=== PATIENT | female | born 1955 | race American Indian/Alaskan Native ===

== ENCOUNTER 2017-07-01 10:45 | Emergency (ER) | payer BC ==
[2017-07-01] MEDS ORDERED: NACL 0.9% 1000 ML 1,000 ML IV ONE (10:58)
[2017-07-01] MEDS ORDERED: PEPCID IV ONE (10:59)
[2017-07-01 11:02] VITALS: BP 118/71
--- NOTE | 2017-07-01 11:07 | Emergency Department Report ---
Entered by YOAN RILEY, acting as scribe for LINDSAY SCHNEIDER NP. Stated Complaint: ALERGIC REACTION Time Seen by Provider: 07/01/17 10:58 - HPI History of Present Illness: Pt is a 61 y.o. female who presents to ED for evaluation of swelling to her left face and neck with generalized itching that started at approximately 1500 yesterday after eating david greens with turkey meat and spices made by coworker. She reports taking one Benadryl yesterday, but states that it made her feel worse. She does not report SOB or tongue swelling. - ROS Review of Systems: Positive for swelling to left face and neck Positive for generalized itching Negative for SOB or tongue swelling - Exam Physical Exam: Constitutional: Well-nourished, NAD. Pumonary: No airway compromise Neuro: A&Ox3 MSE screening note: Focused history and physical exam performed. Due to findings the following was ordered: Orders placed for: Meds and IV fluids ED Disposition for MSE Condition: Stable This documentation as recorded by the scribe,YOAN RILEY,accurately reflects the service I personally performed and the decisions made by ,LINDSAY SCHNEIDER NP.
--- NOTE | 2017-07-01 12:11 | Emergency Department Report ---
ED Allergic Reaction HPI - General Chief complaint: Allergic Reaction Stated complaint: ALERGIC REACTION Time Seen by Provider: 07/01/17 10:58 Source: patient Mode of arrival: Ambulatory Limitations: No Limitations - History of Present Illness Initial Comments: Pt is a 61 y.o. female who presents to ED for evaluation of swelling to her left face and neck with generalized itching that started at approximately 1500 yesterday after eating david greens with turkey meat and spices made by coworker. She reports taking one Benadryl yesterday, but states that it made her feel worse. She does not report SOB or tongue swelling. Patient denies any chest pain. Denies any wheezing. Also reported nasal congestion and coughing for one week. Patient with history of hyperlipidemia, hypertension, coronary artery disease with history of heart stent. Acid reflux. She denies any headache but reports facial pressure. Denies any sore throats . Niacin A difficulty swallowing MD Complaint: allergic reaction, facial swelling Onset/Timin -: days(s) (nasal congestion and cough for 1 week) Exposure: food Symptoms: itching, facial swelling. denies: lip swelling, difficulty swallowing , difficulty breathing, orolingual swelling, hoarseness, syncopy, dizziness, nausea, vomiting, abdominal pain Severity: moderate Treatment Prior to Arrival: benadryl Previous Allergy History: none - Related Data Previous Rx's Medication Instructions Recorded Last Taken Type AtorvaSTATin [Lipitor] 20 mg PO QHS #30 tablet 12/30/16 Unknown Rx Carvedilol [Coreg] 3.125 mg PO BID #60 tablet 12/30/16 Unknown Rx Clopidogrel [Plavix] 75 mg PO QDAY #30 tablet 12/30/16 Unknown Rx Lisinopril [Zestril TAB] 5 mg PO QDAY #30 tablet 12/30/16 Unknown Rx Pantoprazole [Protonix TAB] 20 mg PO QDAY #30 tablet. 12/30/16 Unknown Rx Amoxicillin/K Clav Tab [Augmentin 1 tab PO Q12HR #20 tab 07/01/17 Unknown Rx 875 mg] Cetirizine HCl [ZyrTEC] 10 mg PO QDAY #14 capsule 07/01/17 Unknown Rx Fluticasone [Flonase] 1 spray NS QDAY #1 bottle 07/01/17 Unknown Rx hydrOXYzine HCL [Atarax] 25 mg PO Q8H PRN #12 tablet 07/01/17 Unknown Rx methylPREDNISolone [Medrol] 4 mg PO QAM #1 tab.ds.pk 07/01/17 Unknown Rx Allergies Allergy/AdvReac Type Severity Reaction Status Date / Time aspirin Allergy Unknown Verified 10/31/13 12:35 Sulfa (Sulfonamide Allergy Unknown Verified 10/31/13 12:35 Antibiotics) ED Review of Systems ROS: Stated complaint: ALERGIC REACTION Other details as noted in HPI Comment: All other systems reviewed and negative Constitutional: denies: chills, fever Eyes: other (A she'll swelling especially around right eye). denies: eye pain, eye discharge, vision change ENT: congestion Respiratory: cough. denies: shortness of breath, SOB with exertion, SOB at rest , stridor, wheezing Cardiovascular: denies: chest pain, palpitations, edema, syncope Gastrointestinal: denies: abdominal pain, nausea, vomiting, diarrhea Musculoskeletal: denies: back pain, arthralgia Skin: pruritus. denies: rash Neurological: denies: headache, weakness, abnormal gait, vertigo ED Past Medical Hx - Past Medical History Previous Medical History?: Yes Hx Hypertension: Yes Additional medical history: high cholesterol - Surgical History Past Surgical History?: Yes Hx Coronary Stent: Yes (x1) Additional Surgical History: c section x 1 - Family History Family history: CAD/PR, hypertension - Social History Smoking Status: Former Smoker Substance Use Type: Prescribed Other Social History: Single - Medications Home Medications: Home Medications Medication Instructions Recorded Confirmed Last Taken Type AtorvaSTATin [Lipitor] 20 mg PO QHS #30 tablet 12/30/16 Unknown Rx Carvedilol [Coreg] 3.125 mg PO BID #60 tablet 12/30/16 Unknown Rx Clopidogrel [Plavix] 75 mg PO QDAY #30 tablet 12/30/16 Unknown Rx Lisinopril [Zestril TAB] 5 mg PO QDAY #30 tablet 12/30/16 Unknown Rx Pantoprazole [Protonix TAB] 20 mg PO QDAY #30 tablet.dr 12/30/16 Unknown Rx Amoxicillin/K Clav Tab [Augmentin 1 tab PO Q12HR #20 tab 07/01/17 Unknown Rx 875 mg] Cetirizine HCl [ZyrTEC] 10 mg PO QDAY #14 capsule 07/01/17 Unknown Rx Fluticasone [Flonase] 1 spray NS QDAY #1 bottle 07/01/17 Unknown Rx hydrOXYzine HCL [Atarax] 25 mg PO Q8H PRN #12 tablet 07/01/17 Unknown Rx methylPREDNISolone [Medrol] 4 mg PO QAM #1 tab.ds.pk 07/01/17 Unknown Rx ED Physical Exam - General Limitations: No Limitations General appearance: alert, in no apparent distress - Head Head exam: Present: atraumatic, normocephalic, normal inspection - Eye Eye exam: Present: normal appearance, PERRL, EOMI, periorbital swelling (Right) . Absent: conjunctival injection, nystagmus Pupils: Present: normal accommodation - ENT ENT exam: Present: normal exam, normal orophraynx, mucous membranes moist, other (facial swelling. Nasal mucosa congested and erythema with clear drainage and maxillary sinus tenderness to palpate). Absent: TM's normal bilaterally (Hiro Tm congestion without erythema), normal external ear exam - Neck Neck exam: Present: normal inspection. Absent: tenderness, meningismus, full ROM, lymphadenopathy - Expanded Neck Exam Expanded Neck exam: Present: other (mild anterior neck swelling). Absent: tenderness, midline deformity, anterior neck swelling, tracheal deviation - Respiratory Respiratory exam: Present: normal lung sounds bilaterally. Absent: respiratory distress, wheezes, rales, rhonchi, stridor, chest wall tenderness, accessory muscle use, decreased breath sounds, prolonged expiratory - Cardiovascular Cardiovascular Exam: Present: regular rate, normal rhythm, normal heart sounds - GI/Abdominal GI/Abdominal exam: Present: soft, normal bowel sounds. Absent: distended, tenderness, guarding, rebound, rigid - Extremities Exam Extremities exam: Present: normal inspection, full ROM, normal capillary refill. Absent: tenderness, pedal edema, joint swelling, calf tenderness - Back Exam Back exam: Present: normal inspection, full ROM. Absent: tenderness, CVA tenderness (R), CVA tenderness (L), muscle spasm, paraspinal tenderness, vertebral tenderness, rash noted - Neurological Exam Neurological exam: Present: alert, oriented X3, normal gait, reflexes normal. Absent: motor sensory deficit - Psychiatric Psychiatric exam: Present: normal affect, normal mood - Skin Skin exam: Present: warm, dry, intact, normal color. Absent: rash ED Course Vital Signs 07/01/17 10:56 Temperature 98 F Pulse Rate 84 Respiratory 20 Rate Blood Pressure 118/71 O2 Sat by Pulse 100 Oximetry - Reevaluation(s) Reevaluation #1: 07/01/17 12:32 Patient given IV fluids 1 L, Solu-Medrol 125 mg IV, Pepcid 20 mg IV and 1 L for IV fluid. Facial swelling has improved significantly. Since that she is feeling better. Swelling to anterior neck is also improved ED Medical Decision Making - Medical Decision Making ED course: He can present to the emergency room for facial swelling and and swelling around her right eye and anterior neck swelling after eating colored greens yesterday. She was not having any difficulty breathing, stridor, wheezing in or difficulty swallowing, swelling of tongue. She took Benadryl last night which made her very groggy and sleepy. SHe is also complaining of nasal congestion and coughing 1 week that's not related to the allergic reaction.Physical findings for patient with allergic reaction from food source which she received Solu-Medrol 125 mg IV and Pepcid 20 mg IV with 1 L for IV fluid and she has improved significantly. Patient was not given Benadryl and emergency room because she does not have someone to drive her home and her allergic reaction is minor. She is also with acute sinusitis and cough. I discussed the patient diagnosis and treatment plan and she voices understanding. She does have a primary care physician so I discussed with her that she needs to follow up with her primary care physician status post allergic reaction and acute sinusitis in 2 days. I also discussed with her if her symptoms of allergic reaction returns, swelling of the neck and phase, swelling of the tongue with difficulty breathing and to return to the emergency room [facility]. Patient discharged home with prescription for Medrol Dosepak, Flonase, Augmentin, Atarax and Zyrtec. Critical care attestation.: If time is entered above; I have spent that time in minutes in the direct care of this critically ill patient, excluding procedure time. ED Disposition Clinical Impression: Cough in adult Allergic reaction to food Qualifiers: Encounter type: initial encounter Qualified Code(s): T78.1XXA - Other adverse food reactions, not elsewhere classified, initial encounter Sinusitis, acute Qualifiers: Sinusitis location: maxillary Recurrence: recurrent Qualified Code(s): J01.01 - Acute recurrent maxillary sinusitis Disposition: DC-01 TO HOME OR SELFCARE Is pt being admited?: No Does the pt Need Aspirin: No Condition: Stable Instructions: Food Allergy (ED), Sinusitis (ED), Acute Cough (ED) Additional Instructions: Follow-up with her primary care physician in 2 days Take Medication as prescribed. Atarax is in benadryl family so sometimes they can make you drowsy so please do not take while driving or operating heavy machinery Use nasal saline to flush and nostrils without to relieve congestion If you develop, is focal to breathing, shortness of breath, increase in facial swelling and neck swelling, swelling of the tongue and difficulty swallowing please return to the emergency room [facility] Prescriptions: Amoxicillin/K Clav Tab [Augmentin 875 mg] 1 tab PO Q12HR #20 tab Cetirizine HCl [ZyrTEC] 10 mg PO QDAY #14 capsule Fluticasone [Flonase] 1 spray NS QDAY #1 bottle hydrOXYzine HCL [Atarax] 25 mg PO Q8H PRN #12 tablet PRN Reason: Itching methylPREDNISolone [Medrol] 4 mg PO QAM #1 tab.ds.pk Referrals: PRIMARY CARE, [Primary Care Provider] - 3-5 Days Forms: Work/School Release Form(ED)
== END 2017-07-01 12:56 | disposition home or self-care (01) ==
LOC: ED 10:45
DX: T78.1XXA Other adverse food reactions, not elsewhere classified, initial encounter (principal); J01.01 Acute recurrent maxillary sinusitis; R05 Cough; I10 Essential (primary) hypertension; Z87.891 Personal history of nicotine dependence; E78.00 Pure hypercholesterolemia, unspecified; Z79.82 Long term (current) use of aspirin; Z88.2 Allergy status to sulfonamides
CPT/HCPCS: 96361; 96374; 96375; 99282; J2930; J7030

== ENCOUNTER 2017-10-21 13:12 | Emergency (ER) | payer BC ==
[2017-10-21 13:45] VITALS: BP 176/85
--- NOTE | 2017-10-21 15:28 | Emergency Department Report ---
[facility] Chief Complaint: Eye Problems Stated Complaint: RIGHT EYE RED ITCHING Time Seen by Provider: 10/21/17 15:22 Duration: 2 Days Side: Bilateral Severity: moderate Symptoms: Yes Eye Itching, Yes Eye Redness, Yes Eye Pain (burning ), Yes Mucous Drainage (bilat ), Yes Purulent Drainage (bilat), No Blurred Vision, No Preceding URI, No H/O Allergic Rhinitis, No Contact Lens Use, No Trauma, No Fever, No Headache ED Review of Systems ROS: Stated complaint: RIGHT EYE RED ITCHING Other details as noted in HPI Constitutional: denies: chills, fever Eyes: eye pain, eye discharge. denies: vision change ENT: denies: ear pain, throat pain, dental pain, hearing loss, epistaxis, congestion Respiratory: denies: cough, shortness of breath, wheezing Cardiovascular: denies: chest pain, palpitations Endocrine: no symptoms reported Gastrointestinal: denies: abdominal pain, nausea, diarrhea Genitourinary: denies: urgency, dysuria, discharge Musculoskeletal: denies: back pain, joint swelling, arthralgia Skin: denies: rash, lesions Neurological: as per HPI Psychiatric: denies: anxiety, depression Hematological/Lymphatic: denies: easy bleeding, easy bruising ED Past Medical Hx - Past Medical History Previous Medical History?: Yes Hx Hypertension: Yes (stopped taking medications) Additional medical history: high cholesterol - Surgical History Past Surgical History?: Yes Hx Coronary Stent: Yes (x1) Additional Surgical History: c section x 1 - Social History Smoking Status: Former Smoker Substance Use Type: Alcohol - Medications Home Medications: Home Medications Medication Instructions Recorded Confirmed Last Taken Type AtorvaSTATin [Lipitor] 20 mg PO QHS #30 tablet 12/30/16 Unknown Rx Carvedilol [Coreg] 3.125 mg PO BID #60 tablet 12/30/16 Unknown Rx Clopidogrel [Plavix] 75 mg PO QDAY #30 tablet 12/30/16 Unknown Rx Lisinopril [Zestril TAB] 5 mg PO QDAY #30 tablet 12/30/16 Unknown Rx Pantoprazole [Protonix TAB] 20 mg PO QDAY #30 tablet 12/30/16 Unknown Rx Amoxicillin/K Clav Tab [Augmentin 1 tab PO Q12HR #20 tab 07/01/17 Unknown Rx 875 mg] Cetirizine HCl [ZyrTEC] 10 mg PO QDAY #14 capsule 07/01/17 Unknown Rx Fluticasone [Flonase] 1 spray NS QDAY #1 bottle 07/01/17 Unknown Rx hydrOXYzine HCL [Atarax] 25 mg PO Q8H PRN #12 tablet 07/01/17 Unknown Rx methylPREDNISolone [Medrol] 4 mg PO QAM #1 tab.ds.pk 07/01/17 Unknown Rx Acetaminophen 650 mg PO QID PRN #30 tablet 10/21/17 Unknown Rx Cetirizine HCl [Zyrtec] 10 mg PO DAILY #30 tablet 10/21/17 Unknown Rx Ofloxacin [Ocuflox 0.3%] 1 - 2 drop OU Q3HR 7 Days #1 bottle 10/21/17 Unknown Rx [facility] Exam - Exam General: Vital signs noted. No distress. Alert and acting appropriately. Eye Exam: Both Injection, Both EOMI, Both Mucous Discharge, Both Purulent Discharge, Neither Chemosis, Neither Abnormal Pupil, Neither Eye Foreign Body, Neither Lid Foreign Body, Neither Corneal Edema, Neither Photophobia HEENT: No Nasal Congestion, No Pharyngeal Erythema Remainder of HEENT: Normal Lungs: Yes Clear Lung Sounds, Yes Good Air Exchange, No Wheezes, No Stridor, No Cough, No Nasal Flaring, No Retractions, No Use of Accessory Muscles ED Course Vital Signs 10/21/17 13:42 Temperature 98.1 F Pulse Rate 62 Respiratory 20 Rate Blood Pressure 176/85 O2 Sat by Pulse 100 Oximetry ED Medical Decision Making - Medical Decision Making 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 Eye v/s PERRLA, EOMI, Conjunctivae erythema tearing visual acuity 20/40 bilat, bilat lids inverted, swept, irrigated with N/S this is a bilateral eye complaint likely conjunctivitis, will tx with polytrim, zyrtec, tylenol, pt will follow up with 1-2 days or return to emergency if symptoms not improving. pt verbalized agreement and understanding of discharge plan. Critical care attestation.: If time is entered above; I have spent that time in minutes in the direct care of this critically ill patient, excluding procedure time. ED Disposition Clinical Impression: Conjunctivitis Qualifiers: Conjunctivitis type: acute Acute conjunctivitis type: bacterial Laterality: bilateral Qualified Code(s): H10.33 - Unspecified acute conjunctivitis, bilateral Disposition: TO HOME OR SELFCARE Is pt being admited?: No Does the pt Need Aspirin: No Condition: Good Instructions: Conjunctivitis (ED) Additional Instructions: follow up with Ophthalmology in 1-2 days as instructed Prescriptions: Acetaminophen 650 mg PO QID PRN #30 tablet PRN Reason: Pain Cetirizine HCl [Zyrtec] 10 mg PO DAILY #30 tablet Ofloxacin [Ocuflox 0.3%] 1 - 2 drop OU Q3HR 7 Days #1 bottle Referrals: PRIMARY CAREMD [Primary Care Provider] - 3-5 Days ROLO STEWART MD [Staff Physician] - 3-5 Days Forms: Work/School Release Form(ED) Time of Disposition: 15:43
== END 2017-10-21 15:55 | disposition home or self-care (01) ==
LOC: ED 13:12
DX: H10.33 Unspecified acute conjunctivitis, bilateral (principal); I10 Essential (primary) hypertension
CPT/HCPCS: 99282

== ENCOUNTER 2017-12-10 08:37 | Emergency (ER) | payer SELFPAY ==
[2017-12-10 08:48] VITALS: BP 111/59
[2017-12-10 09:09] LABS: Basophils # (Auto) 0.1 K/mm3 (0.0-0.1); Basophils % (Auto) 1.2 % (0.0-1.8); Eosinophils % (Auto) 0.7 % (0.0-4.3); Hematocrit 40.5 % (30.3-42.9); Lymphocytes # (Auto) 1.5 K/mm3 (1.2-5.4); Lymphocytes % (Auto) 28.9 % (13.4-35.0); Mean Corpuscular HGB Conc 32 % (30-34); Mean Corpuscular Hemoglobin 27 pg (28-32); Mean Corpuscular Volume 83 fl (79-97); Monocytes # (Auto) 0.8 K/mm3 (0.0-0.8); Monocytes % (Auto) 15.5 % (0.0-7.3); Platelet Count 212 K/mm3 (140-440); Red Cell Distribution Width 14.9 % (13.2-15.2)
[2017-12-10 09:22] LABS: BUN/Creatinine Ratio 16; Blood Urea Nitrogen 13 mg/dL (7-17); Calcium 8.5 mg/dL (8.4-10.2); Hemolysis Index 7
[2017-12-10] MEDS ORDERED: K-DUR PO ONE (11:16)
[2017-12-10] MEDS ORDERED: TESSALON PERLES PO ONE (11:17)
--- NOTE | 2017-12-10 11:27 | Emergency Department Report ---
- General Chief Complaint: Upper Respiratory Infection Stated Complaint: WEAKNESS Time Seen by Provider: 12/10/17 11:15 Source: patient Mode of arrival: Ambulatory Limitations: No Limitations - History of Present Illness Initial Comments: this is a 62-year-old female nontoxic, well nourished in appearance, no acute signs of distress presents to the ED with c/o of productive cough, rhinorrhea, nasal congestion, body aches, weakness and bilateral leg cramps 6 days. Patient describes productive, yellow mucus production. Patient denies any sick contact. Patient denies any recent travels, long car rides or recent hospital stays. Denies hemoptysis, chest pain, short of breath, difficulty breathing, fever, chills, nausea, vomiting, abdominal pain, back pain, calf pain, calf tenderness. Patient denies any headache or stiff neck. Patient states allergies to aspirin and sulfa. Past medical history includes diet-controlled hypertension. MD Complaint: cough, rhinorrhea, nasal congestion -: days(s) (6) Severity: mild Consistency: constant Improves With: nothing Worsens With: nothing Associated Symptoms: rhinorrhea, nasal congestion, cough. denies: fever, chills , myalgias, diaphoresis, headache, sore throat, stiff neck, chest pain, shortness of breath, abdominal pain, nausea, vomiting, diarrhea, dysuria, rash, confusion, right sweats, weight loss, hoarseness, ear pain Treatments Prior to Arrival: none - Related Data Previous Rx's Medication Instructions Recorded Last Taken Type AtorvaSTATin [Lipitor] 20 mg PO QHS #30 tablet 12/30/16 Unknown Rx Carvedilol [Coreg] 3.125 mg PO BID #60 tablet 12/30/16 Unknown Rx Clopidogrel [Plavix] 75 mg PO QDAY #30 tablet 12/30/16 Unknown Rx Lisinopril [Zestril TAB] 5 mg PO QDAY #30 tablet 12/30/16 Unknown Rx Pantoprazole [Protonix TAB] 20 mg PO QDAY #30 tablet 12/30/16 Unknown Rx Amoxicillin/K Clav Tab [Augmentin 1 tab PO Q12HR #20 tab 07/01/17 Unknown Rx 875 mg] Cetirizine HCl [ZyrTEC] 10 mg PO QDAY #14 capsule 07/01/17 Unknown Rx Fluticasone [Flonase] 1 spray NS QDAY #1 bottle 07/01/17 Unknown Rx hydrOXYzine HCL [Atarax] 25 mg PO Q8H PRN #12 tablet 07/01/17 Unknown Rx methylPREDNISolone [Medrol] 4 mg PO QAM #1 tab.ds.pk 07/01/17 Unknown Rx Acetaminophen 650 mg PO QID PRN #30 tablet 10/21/17 Unknown Rx Cetirizine HCl [Zyrtec] 10 mg PO DAILY #30 tablet 10/21/17 Unknown Rx Ofloxacin [Ocuflox 0.3%] 1 - 2 drop OU Q3HR 7 Days #1 bottle 10/21/17 Unknown Rx Azithromycin [Zithromax Z-GALA] 250 mg PO DAILY #6 tablet 12/10/17 Unknown Rx Benzonatate [Tessalon Perle] 100 mg PO Q6H PRN #20 capsule 12/10/17 Unknown Rx Allergies Allergy/AdvReac Type Severity Reaction Status Date / Time aspirin Allergy Unknown Verified 10/31/13 12:35 Sulfa (Sulfonamide Allergy Unknown Verified 10/31/13 12:35 Antibiotics) ED Review of Systems ROS: Stated complaint: WEAKNESS Other details as noted in HPI Constitutional: denies: chills, fever Eyes: denies: eye pain, eye discharge, vision change ENT: denies: ear pain, throat pain Respiratory: cough. denies: shortness of breath, wheezing Cardiovascular: denies: chest pain, palpitations Endocrine: no symptoms reported Gastrointestinal: denies: abdominal pain, nausea, diarrhea Genitourinary: denies: urgency, dysuria, discharge Musculoskeletal: denies: back pain, joint swelling, arthralgia Skin: denies: rash, lesions Neurological: weakness. denies: headache, paresthesias Psychiatric: denies: anxiety, depression Hematological/Lymphatic: denies: easy bleeding, easy bruising ED Past Medical Hx - Past Medical History Previous Medical History?: Yes Hx Hypertension: Yes (stopped taking medications) Additional medical history: high cholesterol - Surgical History Past Surgical History?: Yes Hx Coronary Stent: Yes (x1) Additional Surgical History: c section x 1 - Social History Smoking Status: Former Smoker Substance Use Type: Prescribed - Medications Home Medications: Home Medications Medication Instructions Recorded Confirmed Last Taken Type AtorvaSTATin [Lipitor] 20 mg PO QHS #30 tablet 12/30/16 Unknown Rx Carvedilol [Coreg] 3.125 mg PO BID #60 tablet 12/30/16 Unknown Rx Clopidogrel [Plavix] 75 mg PO QDAY #30 tablet 12/30/16 Unknown Rx Lisinopril [Zestril TAB] 5 mg PO QDAY #30 tablet 12/30/16 Unknown Rx Pantoprazole [Protonix TAB] 20 mg PO QDAY #30 tablet. 12/30/16 Unknown Rx Amoxicillin/K Clav Tab [Augmentin 1 tab PO Q12HR #20 tab 07/01/17 Unknown Rx 875 mg] Cetirizine HCl [ZyrTEC] 10 mg PO QDAY #14 capsule 07/01/17 Unknown Rx Fluticasone [Flonase] 1 spray NS QDAY #1 bottle 07/01/17 Unknown Rx hydrOXYzine HCL [Atarax] 25 mg PO Q8H PRN #12 tablet 07/01/17 Unknown Rx methylPREDNISolone [Medrol] 4 mg PO QAM #1 tab.ds.pk 07/01/17 Unknown Rx Acetaminophen 650 mg PO QID PRN #30 tablet 10/21/17 Unknown Rx Cetirizine HCl [Zyrtec] 10 mg PO DAILY #30 tablet 10/21/17 Unknown Rx Ofloxacin [Ocuflox 0.3%] 1 - 2 drop OU Q3HR 7 Days #1 bottle 10/21/17 Unknown Rx Azithromycin [Zithromax Z-GALA] 250 mg PO DAILY #6 tablet 12/10/17 Unknown Rx Benzonatate [Tessalon Perle] 100 mg PO Q6H PRN #20 capsule 12/10/17 Unknown Rx ED Physical Exam - General Limitations: No Limitations General appearance: alert, in no apparent distress - Head Head exam: Present: atraumatic, normocephalic, normal inspection - Eye Eye exam: Present: normal appearance, PERRL, EOMI. Absent: scleral icterus, conjunctival injection, nystagmus, periorbital swelling, periorbital tenderness Pupils: Present: normal accommodation - ENT ENT exam: Present: normal exam, normal orophraynx, mucous membranes moist, TM's normal bilaterally, normal external ear exam - Neck Neck exam: Present: normal inspection, full ROM. Absent: tenderness, meningismus, lymphadenopathy, thyromegaly - Respiratory Respiratory exam: Present: normal lung sounds bilaterally. Absent: respiratory distress, wheezes, rales, rhonchi, stridor, chest wall tenderness, accessory muscle use, decreased breath sounds, prolonged expiratory - Cardiovascular Cardiovascular Exam: Present: regular rate, normal rhythm, normal heart sounds. Absent: bradycardia, tachycardia, irregular rhythm, systolic murmur, diastolic murmur, rubs, gallop - GI/Abdominal GI/Abdominal exam: Present: soft, normal bowel sounds. Absent: distended, tenderness, guarding, rebound, rigid, diminished bowel sounds - Rectal Rectal exam: Present: deferred - Extremities Exam Extremities exam: Present: normal inspection, full ROM, normal capillary refill. Absent: tenderness, pedal edema, joint swelling, calf tenderness - Back Exam Back exam: Present: normal inspection, full ROM. Absent: tenderness, CVA tenderness (R), CVA tenderness (L), muscle spasm, paraspinal tenderness, vertebral tenderness, rash noted - Neurological Exam Neurological exam: Present: alert, oriented X3, CN II-XII intact, normal gait, reflexes normal - Psychiatric Psychiatric exam: Present: normal affect, normal mood - Skin Skin exam: Present: warm, dry, intact, normal color. Absent: rash - Other Other exam information: Negative Holmans test. No calf pain or tenderness. ED Course Vital Signs 12/10/17 08:45 Temperature 98.7 F Pulse Rate 77 Respiratory 18 Rate Blood Pressure 111/59 O2 Sat by Pulse 100 Oximetry - Reevaluation(s) Reevaluation #1: 12/10/17 11:33 Patient is speaking in full sentences with no signs of distress noted. ED Medical Decision Making - Lab Data Result diagrams: 12/10/17 08:48 12/10/17 08:48 - Medical Decision Making This is a 62-year-old female presents with hypokalemia and upper respiratory infection. Patient stable and was examined by me. CBC and BPM obtain an shows a 3.3 low potassium. Patient received potassium chloride 20 MEQ by mouth. EKG obtained with no acute changes. Chest x-ray has been obtained and the radiologist with normal exam. Wells criteria 0 points. No signs or indications of PE or DVT upon examination and physical history. Patient be treated with empirically azithromycin due to symptoms worsening. Patient received Tessalon Perle and the patient's symptoms of cough improving and subsided. Patient was instructed Follow-up with a primary care doctor in 24 hours for abnormal potassium levels or if symptoms worsen and continue return to emergency room as soon as possible. At time time of discharge, the patient does not seem toxic or ill in appearance. No acute signs of distress noted. Patient agrees to discharge treatment plan of care. No further questions noted by the patient. Critical care attestation.: If time is entered above; I have spent that time in minutes in the direct care of this critically ill patient, excluding procedure time. ED Disposition Clinical Impression: Hypokalemia Upper respiratory infection Qualifiers: URI type: unspecified URI Qualified Code(s): J06.9 - Acute upper respiratory infection, unspecified Disposition: - TO HOME OR SELFCARE Is pt being admited?: No Does the pt Need Aspirin: No Condition: Stable Instructions: Benzonatate (By mouth), Azithromycin (By mouth), Hypokalemia (ED) , Upper Respiratory Infection (ED) Additional Instructions: Follow-up with a primary care doctor/inspection clerk in 24 hours for abnormal potassium levels or if symptoms worsen and continue return to emergency room as soon as possible. Prescriptions: Azithromycin [Zithromax Z-GALA] 250 mg PO DAILY #6 tablet Benzonatate [Tessalon Perle] 100 mg PO Q6H PRN #20 capsule PRN Reason: Sore Throat Referrals: PRIMARY MD JOHN [Referring] - 3-5 Days [facility] [place] [Outside] - 3-5 Days [facility] [place] [Outside] - 3-5 Days OCTAVIA HINOJOSA MD [Primary Care Provider] - 24 Hours SINCERE CRUMP MD [Staff Physician] - 24 Hours Forms: Work/School Release Form(ED)
--- NOTE | 2017-12-10 12:09 | XRay Report ---
ROUTINE CHEST, TWO VIEWS: HISTORY: Cough. The trachea, heart, mediastinal contour, lung rebolledo and bony thorax are unremarkable. IMPRESSION: Unremarkable chest x-ray. No significant change since 10/20/16.
== END 2017-12-10 12:35 | disposition home or self-care (01) ==
LOC: ED 08:37
DX: J06.9 Acute upper respiratory infection, unspecified (principal); E87.6 Hypokalemia; I10 Essential (primary) hypertension; Z87.891 Personal history of nicotine dependence; Z95.1 Presence of aortocoronary bypass graft; Z88.6 Allergy status to analgesic agent; Z88.2 Allergy status to sulfonamides
CPT/HCPCS: 36415; 71046; 80048; 85025; 87400; 93005; 93010; 99284

== ENCOUNTER 2018-03-17 16:47 | Emergency (ER) | payer SELFPAY ==
[2018-03-17 16:56] VITALS: BP 139/78
--- NOTE | 2018-03-17 20:11 | Emergency Department Report ---
ED ENT HPI - General Chief complaint: Dental/Oral Stated complaint: TOOTHACHE Time Seen by Provider: 03/17/18 20:11 Source: patient Mode of arrival: Ambulatory Limitations: No Limitations - History of Present Illness Initial comments: This is a 62-year-old female nontoxic, well nourished in appearance, no acute signs of distress presents to the ED with c/o of acute on chronic left lower toothache 1 day. Patient stated she went to a dentist and stated that she was never given any medication for pain or antibiotics. 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 Patient stated that pain radiates from his job to his left side of head. Patient otherwise denies any head trauma. Patient describes toothache as aching level of 8 out of 10. Patient denies any facial swelling. Patient denies any numbness, tingling, fever, chills, headache, stiff neck, abdominal pain, chest pain, shortness of breath. Patient states allergies to aspirin and sulfa. MD complaint: tooth pain -: days(s) (1) Location: tooth # (20) 1 - pain Severity: mild Severity scale (0 -10): 8 Quality: aching Consistency: constant Improves with: none Worsens with: none Context- Dental: history of dental caries, poor dental care Associated Symptoms: gum swelling, toothache. denies: fever, cough, pain with swallowing, sore throat, tinnitus, hearing loss, discharge from ear - Related Data Previous Rx's Medication Instructions Recorded Last Taken Type AtorvaSTATin [Lipitor] 20 mg PO QHS #30 tablet 12/30/16 Unknown Rx Carvedilol [Coreg] 3.125 mg PO BID #60 tablet 12/30/16 Unknown Rx Clopidogrel [Plavix] 75 mg PO QDAY #30 tablet 12/30/16 Unknown Rx Lisinopril [Zestril TAB] 5 mg PO QDAY #30 tablet 12/30/16 Unknown Rx Pantoprazole [Protonix TAB] 20 mg PO QDAY #30 12/30/16 Unknown Rx Amoxicillin/K Clav Tab [Augmentin 1 tab PO Q12HR #20 tab 07/01/17 Unknown Rx 875 mg] Cetirizine HCl [ZyrTEC] 10 mg PO QDAY #14 capsule 07/01/17 Unknown Rx Fluticasone [Flonase] 1 spray NS QDAY #1 bottle 07/01/17 Unknown Rx hydrOXYzine HCL [Atarax] 25 mg PO Q8H PRN #12 tablet 07/01/17 Unknown Rx methylPREDNISolone [Medrol] 4 mg PO QAM #1 tab.ds.pk 07/01/17 Unknown Rx Acetaminophen 650 mg PO QID PRN #30 tablet 10/21/17 Unknown Rx Cetirizine HCl [Zyrtec] 10 mg PO DAILY #30 tablet 10/21/17 Unknown Rx Ofloxacin [Ocuflox 0.3%] 1 - 2 drop OU Q3HR 7 Days #1 bottle 10/21/17 Unknown Rx Azithromycin [Zithromax Z-GALA] 250 mg PO DAILY #6 tablet 12/10/17 Unknown Rx Benzonatate [Tessalon Perle] 100 mg PO Q6H PRN #20 capsule 12/10/17 Unknown Rx Acetaminophen/Codeine [Tylenol 1 tab PO Q6H PRN #12 tab 03/17/18 Unknown Rx /Codeine # 3 tab] Amoxicillin/K Clav Tab [Augmentin 1 tab PO Q12HR #20 tab 03/17/18 Unknown Rx 875 mg] Chlorhexidine Mouthwash [Peridex] 15 ml MM BID #1 bottle 03/17/18 Unknown Rx Allergies Allergy/AdvReac Type Severity Reaction Status Date / Time aspirin Allergy Unknown Verified 03/17/18 16:52 Sulfa (Sulfonamide Allergy Unknown Verified 03/17/18 16:52 Antibiotics) ED Dental HPI - General Chief complaint: Dental/Oral Stated complaint: TOOTHACHE Time Seen by Provider: 03/17/18 20:11 Source: patient Mode of arrival: Ambulatory Limitations: No Limitations - Related Data Previous Rx's Medication Instructions Recorded Last Taken Type AtorvaSTATin [Lipitor] 20 mg PO QHS #30 tablet 12/30/16 Unknown Rx Carvedilol [Coreg] 3.125 mg PO BID #60 tablet 12/30/16 Unknown Rx Clopidogrel [Plavix] 75 mg PO QDAY #30 tablet 12/30/16 Unknown Rx Lisinopril [Zestril TAB] 5 mg PO QDAY #30 tablet 12/30/16 Unknown Rx Pantoprazole [Protonix TAB] 20 mg PO QDAY #30 tablet. 12/30/16 Unknown Rx Amoxicillin/K Clav Tab [Augmentin 1 tab PO Q12HR #20 tab 07/01/17 Unknown Rx 875 mg] Cetirizine HCl [ZyrTEC] 10 mg PO QDAY #14 capsule 07/01/17 Unknown Rx Fluticasone [Flonase] 1 spray NS QDAY #1 bottle 07/01/17 Unknown Rx hydrOXYzine HCL [Atarax] 25 mg PO Q8H PRN #12 tablet 07/01/17 Unknown Rx methylPREDNISolone [Medrol] 4 mg PO QAM #1 tab.ds.pk 07/01/17 Unknown Rx Acetaminophen 650 mg PO QID PRN #30 tablet 10/21/17 Unknown Rx Cetirizine HCl [Zyrtec] 10 mg PO DAILY #30 tablet 10/21/17 Unknown Rx Ofloxacin [Ocuflox 0.3%] 1 - 2 drop OU Q3HR 7 Days #1 bottle 10/21/17 Unknown Rx Azithromycin [Zithromax Z-GALA] 250 mg PO DAILY #6 tablet 12/10/17 Unknown Rx Benzonatate [Tessalon Perle] 100 mg PO Q6H PRN #20 capsule 12/10/17 Unknown Rx Acetaminophen/Codeine [Tylenol 1 tab PO Q6H PRN #12 tab 03/17/18 Unknown Rx /Codeine # 3 tab] Amoxicillin/K Clav Tab [Augmentin 1 tab PO Q12HR #20 tab 03/17/18 Unknown Rx 875 mg] Chlorhexidine Mouthwash [Peridex] 15 ml MM BID #1 bottle 03/17/18 Unknown Rx Allergies Allergy/AdvReac Type Severity Reaction Status Date / Time aspirin Allergy Unknown Verified 03/17/18 16:52 Sulfa (Sulfonamide Allergy Unknown Verified 03/17/18 16:52 Antibiotics) ED Review of Systems ROS: Stated complaint: TOOTHACHE Other details as noted in HPI Constitutional: denies: chills, fever Eyes: denies: eye pain, eye discharge, vision change ENT: dental pain. denies: ear pain, throat pain Respiratory: denies: cough, shortness of breath, wheezing Cardiovascular: denies: chest pain, palpitations Endocrine: no symptoms reported Gastrointestinal: denies: abdominal pain, nausea, diarrhea Genitourinary: denies: urgency, dysuria, discharge Musculoskeletal: denies: back pain, joint swelling, arthralgia Skin: denies: rash, lesions Neurological: denies: headache, weakness, paresthesias Psychiatric: denies: anxiety, depression Hematological/Lymphatic: denies: easy bleeding, easy bruising ED Past Medical Hx - Past Medical History Hx Hypertension: Yes (stopped taking medications) Additional medical history: high cholesterol - Surgical History Hx Coronary Stent: Yes (x1) Additional Surgical History: c section x 1 - Social History Smoking Status: Former Smoker Substance Use Type: Prescribed - Medications Home Medications: Home Medications Medication Instructions Recorded Confirmed Last Taken Type AtorvaSTATin [Lipitor] 20 mg PO QHS #30 tablet 12/30/16 Unknown Rx Carvedilol [Coreg] 3.125 mg PO BID #60 tablet 12/30/16 Unknown Rx Clopidogrel [Plavix] 75 mg PO QDAY #30 tablet 12/30/16 Unknown Rx Lisinopril [Zestril TAB] 5 mg PO QDAY #30 tablet 12/30/16 Unknown Rx Pantoprazole [Protonix TAB] 20 mg PO QDAY #30 tablet.dr 12/30/16 Unknown Rx Amoxicillin/K Clav Tab [Augmentin 1 tab PO Q12HR #20 tab 07/01/17 Unknown Rx 875 mg] Cetirizine HCl [ZyrTEC] 10 mg PO QDAY #14 capsule 07/01/17 Unknown Rx Fluticasone [Flonase] 1 spray NS QDAY #1 bottle 07/01/17 Unknown Rx hydrOXYzine HCL [Atarax] 25 mg PO Q8H PRN #12 tablet 07/01/17 Unknown Rx methylPREDNISolone [Medrol] 4 mg PO QAM #1 tab.ds.pk 07/01/17 Unknown Rx Acetaminophen 650 mg PO QID PRN #30 tablet 10/21/17 Unknown Rx Cetirizine HCl [Zyrtec] 10 mg PO DAILY #30 tablet 10/21/17 Unknown Rx Ofloxacin [Ocuflox 0.3%] 1 - 2 drop OU Q3HR 7 Days #1 bottle 10/21/17 Unknown Rx Azithromycin [Zithromax Z-GALA] 250 mg PO DAILY #6 tablet 12/10/17 Unknown Rx Benzonatate [Tessalon Perle] 100 mg PO Q6H PRN #20 capsule 12/10/17 Unknown Rx Acetaminophen/Codeine [Tylenol 1 tab PO Q6H PRN #12 tab 03/17/18 Unknown Rx /Codeine # 3 tab] Amoxicillin/K Clav Tab [Augmentin 1 tab PO Q12HR #20 tab 03/17/18 Unknown Rx 875 mg] Chlorhexidine Mouthwash [Peridex] 15 ml MM BID #1 bottle 03/17/18 Unknown Rx ED Physical Exam - General Limitations: No Limitations General appearance: alert, in no apparent distress - Head Head exam: Present: atraumatic, normocephalic - Eye Eye exam: Present: normal appearance Pupils: Present: normal accommodation - ENT ENT exam: Present: mucous membranes moist, TM's normal bilaterally, normal external ear exam - Expanded ENT Exam Expanded Ear exam: Present: normal external inspection Mouth exam: Present: normal external inspection, tongue normal. Absent: drooling, trismus, muffled voice, tongue elevation, laceration Teeth exam: Present: dental caries, fractured tooth # (20), dental tenderness # (20), gingival enlargement, other (No facial swelling. ) 1 - Fractured, Dental Tenderness Throat exam: Positive: normal inspection, other (Uvula midline. No abscess or swelling noted. ). Negative: tonsillar erythema, tonsillomegaly, tonsillar exudate, R peritonsillar mass, L peritonsillar mass - Neck Neck exam: Present: normal inspection, full ROM. Absent: tenderness, meningismus - Respiratory Respiratory exam: Present: normal lung sounds bilaterally. Absent: respiratory distress, wheezes, rales, rhonchi, stridor - Cardiovascular Cardiovascular Exam: Present: regular rate, normal rhythm, normal heart sounds. Absent: irregular rhythm, systolic murmur, diastolic murmur, rubs, gallop - GI/Abdominal GI/Abdominal exam: Present: soft, normal bowel sounds - Rectal Rectal exam: Present: deferred - Extremities Exam Extremities exam: Present: normal inspection, full ROM, normal capillary refill - Back Exam Back exam: Present: normal inspection, full ROM - Neurological Exam Neurological exam: Present: alert, oriented X3, normal gait - Psychiatric Psychiatric exam: Present: normal affect, normal mood - Skin Skin exam: Present: warm, dry, intact, normal color. Absent: rash ED Course Vital Signs 03/17/18 16:52 Temperature 97.8 F Pulse Rate 85 Respiratory 18 Rate Blood Pressure 139/78 O2 Sat by Pulse 98 Oximetry - Reevaluation(s) Reevaluation #1: 03/17/18 20:39 Patient is speaking in full sentences with no signs of distress noted. Critical care attestation.: If time is entered above; I have spent that time in minutes in the direct care of this critically ill patient, excluding procedure time. ED Disposition Clinical Impression: Dental caries, Gingivitis Disposition: - TO HOME OR SELFCARE Is pt being admited?: No Does the pt Need Aspirin: No Condition: Stable Instructions: Dental Caries (ED), Gingivitis (ED), Acetaminophen/Codeine (By mouth), Amoxicillin/Clavulanate Potassium (By mouth) Additional Instructions: Follow-up with a dentist in 3-5 days or if symptoms worsen and continue return to emergency room as soon as possible. Prescriptions: Acetaminophen/Codeine [Tylenol /Codeine # 3 tab] 1 tab PO Q6H PRN #12 tab PRN Reason: Pain Amoxicillin/K Clav Tab [Augmentin 875 mg] 1 tab PO Q12HR #20 tab Chlorhexidine Mouthwash [Peridex] 15 ml MM BID #1 bottle Referrals: PRIMARY CAREMD [Referring] - 3-5 Days MICHAEL GARCIA MD [Staff Physician] - 3-5 Days [facility] [Outside] - 3-5 Days
[2018-03-17] MEDS ORDERED: TYLENOL PO ONE (20:15)
== END 2018-03-17 20:45 | disposition home or self-care (01) ==
LOC: ED 16:47
DX: K02.9 Dental caries, unspecified (principal); K05.10 Chronic gingivitis, plaque induced; Z87.891 Personal history of nicotine dependence; Z88.1 Allergy status to other antibiotic agents; Z88.8 Allergy status to other drugs, medicaments and biological substances
CPT/HCPCS: 99282

== ENCOUNTER 2020-01-13 08:44 | Emergency (ER) | payer BC ==
[2020-01-13 08:55] VITALS: BP 153/69
== END 2020-01-13 10:17 | disposition left against medical advice (07) ==
LOC: ED 08:44
DX: S01.112A Laceration without foreign body of left eyelid and periocular area, initial encounter (principal); Z53.21 Procedure and treatment not carried out due to patient leaving prior to being seen by health care provider; X58.XXXA Exposure to other specified factors, initial encounter; Y93.89 Activity, other specified; Y92.89 Other specified places as the place of occurrence of the external cause; Y99.8 Other external cause status

== ENCOUNTER 2020-02-16 14:51 | Emergency (ER) | payer BC ==
--- NOTE | 2020-02-16 16:46 | Event Note ---
ED Screening Note Date of service: 02/16/20 Time: 16:42 ED Screening Note: 64 y o female presents with headache, fever and body aches x today No recent travels No sick contacts This initial assessment/diagnostic orders/clinical plan/treatment(s) is/are subject to change based on patients health status, clinical progression and re- assessment by fellow clinical providers in the ED. Further treatment and workup at subsequent clinical providers discretion. Patient/guardian urged not to elope from the ED as their condition may be serious if not clinically assessed and managed. Initial orders include: cxr acc eval
--- NOTE | 2020-02-16 18:33 | XRay Report ---
CHEST PA AND LATERAL VIEWS INDICATION: cough. COMPARISON: 12/10/2017 FINDINGS: Support devices: None. Heart: Within normal limits. Lungs/Pleura: No consolidation or effusion. No pneumothorax. IMPRESSION: 1. No acute findings. Signer Name: Ashish Williamson MD Signed: 02/16/2020 6:29 PM Workstation Name: [id number]
[2020-02-16 19:18] VITALS: BP 180/76
[2020-02-16] MEDS ORDERED: predniSONE 20 MG TAB PO ONE (20:14)
[2020-02-16] MEDS ORDERED: ACETAMINOPHEN 500 MG TAB PO ONE (20:14)
[2020-02-16] MEDS ORDERED: METOCLOPRAMIDE 10 MG TAB PO ONE (20:14)
[2020-02-16] MEDS ORDERED: diphenhydrAMINE 25 MG CAP PO ONE (20:14)
--- NOTE | 2020-02-16 20:42 | Emergency Department Report ---
ED Headache HPI - General Chief Complaint: Headache Stated Complaint: FEVER/ACHING/HEADACHE Time Seen by Provider: 02/16/20 19:43 - History of Present Illness Initial Comments: 64 y/o female presents with headache, fever and body aches x today, No recent travels, No sick contacts,. There is no fever noted in triage today. There is no cough, there is been no nausea vomiting no shortness of breath , or chest pain. Symptoms are exacerbated by activity. Symptoms are relieved by nothing tried. Patient primary complaint at this time is 4/10 headache right frontal. Patient has had similar headache in the past and same location and intensity. She denies photophobia, there is no dizziness, lightheadedness, or nausea vomiting at this time. Patient is tolerating p.o. intake, gait remains steady and at baseline per patient. Timing/Duration: 24 hours Quality: moderate Head Injury Location: frontal Recent Head Trauma: no recent headache/trauma, occasional headaches Modifying Factors: improves with: movement Associated Symptoms: fever/chills, nasal congestion, nasal drainage. denies: nausea/vomiting, numbness in legs/feet, rash, sinus infection, stiff neck, vision changes, weakness Allergies/Adverse Reactions: Allergies aspirin Allergy (Verified 03/17/18 16:52) Unknown Sulfa (Sulfonamide Antibiotics) Allergy (Verified 03/17/18 16:52) Unknown Home Medications: Ambulatory Orders AtorvaSTATin [Lipitor] 20 mg PO QHS #30 tablet 12/30/16 Clopidogrel [Plavix] 75 mg PO QDAY #30 tablet 12/30/16 Pantoprazole [Protonix TAB] 20 mg PO QDAY #30 tablet. 12/30/16 carvediloL [Coreg] 3.125 mg PO BID #60 tablet 12/30/16 lisinopriL [Zestril TAB] 5 mg PO QDAY #30 tablet 12/30/16 Amoxicillin/K Clav Tab [Augmentin 875 mg] 1 tab PO Q12HR #20 tab 07/01/17 Cetirizine HCl [ZyrTEC] 10 mg PO QDAY #14 capsule 07/01/17 Fluticasone [Flonase] 1 spray NS QDAY #1 bottle 07/01/17 hydrOXYzine HCL [Atarax] 25 mg PO Q8H PRN #12 tablet 07/01/17 methylPREDNISolone [Medrol] 4 mg PO QAM #1 tab.ds.pk 07/01/17 Acetaminophen 650 mg PO QID PRN #30 tablet 10/21/17 Cetirizine HCl [Zyrtec] 10 mg PO DAILY #30 tablet 10/21/17 Ofloxacin [Ocuflox 0.3%] 1 - 2 drop OU Q3HR 7 Days #1 bottle 10/21/17 Azithromycin [Zithromax Z-GALA] 250 mg PO DAILY #6 tablet 12/10/17 Benzonatate [Tessalon Perle] 100 mg PO Q6H PRN #20 capsule 12/10/17 Acetaminophen/Codeine [Tylenol /Codeine # 3 tab] 1 tab PO Q6H PRN #12 tab 03/17/18 Amoxicillin/K Clav Tab [Augmentin 875 mg] 1 tab PO Q12HR #20 tab 03/17/18 Chlorhexidine Mouthwash [Peridex] 15 ml MM BID #1 bottle 03/17/18 Ciprofloxacin HCl [Cipro] 500 mg PO BID #14 tablet 11/09/18 Ondansetron [Zofran Odt] 4 mg PO Q8HR PRN #10 tab.rapdis 11/09/18 Tamsulosin HCl [Flomax] 0.4 mg PO DAILY #3 cap.er.24h 11/09/18 oxyCODONE /ACETAMINOPHEN [Percocet 5/325] 1 tab PO Q6HR PRN #12 tablet 11/09/18 Acetaminophen [Non-Aspirin Extra Strength] 1,000 mg PO QID PRN #30 tablet 02/16/20 Metoclopramide [Reglan] 10 mg PO Q8H PRN #30 tab 02/16/20 diphenhydrAMINE [Benadryl CAP] 25 mg PO Q6HR PRN #30 capsule 02/16/20 ED Review of Systems ROS: Stated complaint: FEVER/ACHING/HEADACHE Other details as noted in HPI Constitutional: denies: chills, fever Eyes: denies: eye pain, eye discharge, vision change ENT: denies: ear pain, throat pain, dental pain, epistaxis, congestion Respiratory: denies: cough, shortness of breath, wheezing Cardiovascular: denies: chest pain, palpitations Endocrine: no symptoms reported Gastrointestinal: denies: abdominal pain, nausea, vomiting, diarrhea Genitourinary: denies: urgency, dysuria, discharge Musculoskeletal: denies: back pain, joint swelling, arthralgia Skin: denies: rash, lesions Neurological: headache. denies: weakness, paresthesias, vertigo Psychiatric: denies: anxiety, depression Hematological/Lymphatic: denies: easy bleeding, easy bruising ED Past Medical Hx - Past Medical History Previous Medical History?: Yes Hx Hypertension: Yes (stopped taking medications) Hx Arthritis: Yes Additional medical history: high cholesterol - Surgical History Past Surgical History?: Yes Hx Coronary Stent: Yes (x1) Additional Surgical History: c section x 1 - Social History Smoking Status: Never Smoker Substance Use Type: None - Medications Home Medications: Home Medications Medication Instructions Recorded Confirmed Last Taken Type AtorvaSTATin [Lipitor] 20 mg PO QHS #30 tablet 12/30/16 Unknown Rx Clopidogrel [Plavix] 75 mg PO QDAY #30 tablet 12/30/16 Unknown Rx Pantoprazole [Protonix TAB] 20 mg PO QDAY #30 tablet.dr 12/30/16 Unknown Rx carvediloL [Coreg] 3.125 mg PO BID #60 tablet 12/30/16 Unknown Rx lisinopriL [Zestril TAB] 5 mg PO QDAY #30 tablet 12/30/16 Unknown Rx Amoxicillin/K Clav Tab [Augmentin 1 tab PO Q12HR #20 tab 07/01/17 Unknown Rx 875 mg] Cetirizine HCl [ZyrTEC] 10 mg PO QDAY #14 capsule 07/01/17 Unknown Rx Fluticasone [Flonase] 1 spray NS QDAY #1 bottle 07/01/17 Unknown Rx hydrOXYzine HCL [Atarax] 25 mg PO Q8H PRN #12 tablet 07/01/17 Unknown Rx methylPREDNISolone [Medrol] 4 mg PO QAM #1 tab.ds.pk 07/01/17 Unknown Rx Acetaminophen 650 mg PO QID PRN #30 tablet 10/21/17 Unknown Rx Cetirizine HCl [Zyrtec] 10 mg PO DAILY #30 tablet 10/21/17 Unknown Rx Ofloxacin [Ocuflox 0.3%] 1 - 2 drop OU Q3HR 7 Days #1 bottle 10/21/17 Unknown Rx Azithromycin [Zithromax Z-GALA] 250 mg PO DAILY #6 tablet 12/10/17 Unknown Rx Benzonatate [Tessalon Perle] 100 mg PO Q6H PRN #20 capsule 12/10/17 Unknown Rx Acetaminophen/Codeine [Tylenol 1 tab PO Q6H PRN #12 tab 03/17/18 Unknown Rx /Codeine # 3 tab] Amoxicillin/K Clav Tab [Augmentin 1 tab PO Q12HR #20 tab 03/17/18 Unknown Rx 875 mg] Chlorhexidine Mouthwash [Peridex] 15 ml MM BID #1 bottle 03/17/18 Unknown Rx Ciprofloxacin HCl [Cipro] 500 mg PO BID #14 tablet 11/09/18 Unknown Rx Ondansetron [Zofran Odt] 4 mg PO Q8HR PRN #10 tab.rapdis 11/09/18 Unknown Rx Tamsulosin HCl [Flomax] 0.4 mg PO DAILY #3 cap.er.24h 11/09/18 Unknown Rx oxyCODONE /ACETAMINOPHEN [Percocet 1 tab PO Q6HR PRN #12 tablet 11/09/18 Unknown Rx 5/325] Acetaminophen [Non-Aspirin Extra 1,000 mg PO QID PRN #30 tablet 02/16/20 Unknown Rx Strength] Metoclopramide [Reglan] 10 mg PO Q8H PRN #30 tab 02/16/20 Unknown Rx diphenhydrAMINE [Benadryl CAP] 25 mg PO Q6HR PRN #30 capsule 02/16/20 Unknown Rx ED Physical Exam - General Limitations: No Limitations General appearance: alert, in no apparent distress - Head Head exam: Present: atraumatic, normocephalic, normal inspection - Eye Eye exam: Present: normal appearance, PERRL, EOMI. Absent: conjunctival injection, nystagmus Pupils: Present: normal accommodation - ENT ENT exam: Present: normal orophraynx, mucous membranes moist, TM's normal bilaterally, normal external ear exam - Neck Neck exam: Present: normal inspection, full ROM. Absent: tenderness, lymphadenopathy, thyromegaly - Respiratory Respiratory exam: Present: normal lung sounds bilaterally. Absent: respiratory distress, wheezes, stridor, chest wall tenderness - Cardiovascular Cardiovascular Exam: Present: regular rate, normal rhythm, normal heart sounds. Absent: systolic murmur, diastolic murmur, rubs, gallop - GI/Abdominal GI/Abdominal exam: Present: soft, normal bowel sounds. Absent: distended, tenderness, bruit, hernia - Rectal Rectal exam: Present: deferred - Extremities Exam Extremities exam: Present: normal inspection - Back Exam Back exam: Present: normal inspection, full ROM. Absent: tenderness, CVA tenderness (R), CVA tenderness (L) - Neurological Exam Neurological exam: Present: alert, oriented X3, CN II-XII intact, normal gait, reflexes normal. Absent: motor sensory deficit - Expanded Neurological Exam Expanded Patient oriented to: Present: person, place, time Speech: Present: fluid speech Motor strength exam: RUE: 5, LUE: 5, RLE: 5, LLE: 5 Best Eye Response ([place]): (4) open spontaneously Best Motor Response ([place]): (6) obeys commands Best Verbal Response ([place]): (5) oriented [place] Total: 15 - Psychiatric Psychiatric exam: Present: normal affect, normal mood - Skin Skin exam: Present: warm, dry, intact, normal color. Absent: rash ED Course Vital Signs 02/16/20 02/16/20 16:41 19:17 Temperature 98.6 F 98.2 F Pulse Rate 66 68 Respiratory 18 20 Rate Blood Pressure 155/71 180/76 O2 Sat by Pulse 100 100 Oximetry ED Medical Decision Making - Radiology Data Radiology results: report reviewed, image reviewed CHEST PA AND LATERAL VIEWS INDICATION: cough. COMPARISON: 12/10/2017 FINDINGS: Support devices: None. Heart: Within normal limits. Lungs/Pleura: No consolidation or effusion. No pneumothorax. IMPRESSION: 1. No acute findings. Signer Name: Ashish Williamson MD Signed: 02/16/2020 5:29 PM Workstation Name: [id number] - Medical Decision Making Headache symptoms improved to 01/10. Chest x-ray normal no infiltrates no opacities. Exam is normal ENT exam is normal , plan DC to home with prescripti ons. Patient will follow-up with primary care in 2 to 3 days. She will return to emergency department should symptoms worsen. Patient verbalized agreement and understanding with discharge plan. Patient DC'd home in stable condition at this time. Critical care attestation.: If time is entered above; I have spent that time in minutes in the direct care of this critically ill patient, excluding procedure time. ED Disposition Clinical Impression: Headache Qualifiers: Headache type: unspecified Headache chronicity pattern: acute headache Intractability: not intractable Qualified Code(s): R51 - Headache Disposition: DC-01 TO HOME OR SELFCARE Is pt being admited?: No Does the pt Need Aspirin: No Condition: Stable Instructions: Acute Headache (ED) Prescriptions: diphenhydrAMINE [Benadryl CAP] 25 mg PO Q6HR PRN #30 capsule PRN Reason: Headache Acetaminophen [Non-Aspirin Extra Strength] 1,000 mg PO QID PRN #30 tablet PRN Reason: Headache Metoclopramide [Reglan] 10 mg PO Q8H PRN #30 tab PRN Reason: Headache Referrals: ASAEL DONG MD [Staff Physician] - 3-5 Days Forms: Work/School Release Form(ED) Time of Disposition: 20:50
== END 2020-02-16 21:10 | disposition home or self-care (01) ==
LOC: ED 14:51
DX: R51 Headache (principal); R50.9 Fever, unspecified; R53.81 Other malaise; I10 Essential (primary) hypertension; M19.91 Primary osteoarthritis, unspecified site; E78.00 Pure hypercholesterolemia, unspecified; Z98.890 Other specified postprocedural states; Z79.2 Long term (current) use of antibiotics; Z79.899 Other long term (current) drug therapy; Z88.6 Allergy status to analgesic agent; Z88.2 Allergy status to sulfonamides
CPT/HCPCS: 71046; 99283; J7512